=== PATIENT | female | born 1970 ===

== ENCOUNTER 2017-06-07 06:35 | Emergency (ER) | payer SELFPAY ==
[2017-06-07] MEDS ORDERED: Erythromycin Base 0.5% Ophth Oint 3.5 gm Tube ONE (08:05)
== END 2017-06-07 07:13 | disposition home or self-care (01) ==
LOC: ERS 06:35
DX: F15.90 Other stimulant use, unspecified, uncomplicated (principal); E11.9 Type 2 diabetes mellitus without complications; E78.5 Hyperlipidemia, unspecified; I10 Essential (primary) hypertension; F41.9 Anxiety disorder, unspecified; F31.9 Bipolar disorder, unspecified; F17.210 Nicotine dependence, cigarettes, uncomplicated
CPT/HCPCS: 99284